=== PATIENT | female | born 1950 | race Caucasian/White ===

== ENCOUNTER 2021-10-27 08:49 | Outpatient (CLI) | payer MEDICARE, SELFPAY | END 2021-10-27 08:50 | disposition home or self-care (01) | LOC: ANHBWCAUD 08:50 | PROVIDERS: PCP Family Medicine; Visit Provider Otolaryngology | DX: H93.19 Tinnitus, unspecified ear (principal); H90.A21 Sensorineural hearing loss, unilateral, right ear, with restricted hearing on the contralateral side; H90.A32 Mixed conductive and sensorineural hearing loss, unilateral, left ear with restricted hearing on the contralateral side | CPT/HCPCS: 92557; 92567 ==